=== PATIENT | female | born 1955 | race Hispanic/Latino ===

== ENCOUNTER → 2017-09-28 | Day surgery (SDC) | payer BC ==
[~2017-09-28] MED LIST: AMLODIPINE BESYL5 MG PO; ASPIR 8181 MG PO; AURYXIA PO; CARVEDILOL PO; CLOPIDOGREL75 MG PO; LIDOCAINE HCL 2% LOCAL INJ 5 ML SDV VIAL INJ ONE; PROPOFOL IV EMULSION 10 MG/ML 50 ML VIAL ONE; SODIUM CHLORIDE 0.9% 500ML 500 ML ONE
--- OUTSIDE RECORDS SUMMARY | 2017-09-28 07:25 | XMS REPORT | Clinical Summary ---
Demographics Address [address] [place] [address] Home Phone Preferred Language Unknown Marital Status Unknown Mormon Affiliation Patient Refu Race White Ethnic Group /Latin Author Author [facility] Address Unknown Phone Unavailable Care Team Providers Care County Commissioner Name Role Phone PCP Unavailable Allergies Active Allergy Reactions Severity Noted Date Comments Diphenhydramine Hcl 06/11/2017 Insulins 06/11/2017 Current Medications Prescription Sig. Disp. Refills Start End Date Status Date ferric citrate (AURYXIA) Take 630 mg by mouth 3 Active 210 mg iron Tab (three) times daily. amLODIPine (NORVASC) 5 MG Take 5 mg by mouth daily. Active tablet clopidogrel (PLAVIX) 75 Take 75 mg by mouth Active mg tablet daily. carvedilol (COREG) 12.5 Take 12.5 mg by mouth 2 Active MG tablet (two) times daily with breakfast and dinner. aspirin 81 MG EC tablet Take 81 mg by mouth Active daily. Active Problems Problem Noted Date ESRD (end stage renal disease) ([facility]) 09/21/2017 Pre-transplant evaluation for chronic kidney disease 09/21/2017 Essential hypertension 09/21/2017 Coronary artery disease involving poarch coronary artery of poarch heart without angina pectoris S/P coronary artery stent placement 09/21/2017 Secondary hyperparathyroidism of renal origin ([facility]) 09/21/2017 Encounters Date Type Specialty Care Team Description 09/22/2017 Telephone Transplant Jil Rasmussen Appointment ( Conference call with Madeleine Arguello and patient is aware of her appt date with Dr. Friedman on 10/19/17 at 10:00 am her itinerary has been mailed to the patient and faxed to the hd unit. Spoke with Jessica at the hd unit and she states she will give the patient her itinerary) 09/21/2017 Follow-Up Transplant Leo Loza MD 09/21/2017 Evaluation Transplant Leo Loza Pre-transplant evaluation MD Daniel for chronic kidney disease (Primary Dx);ESRD (end stage renal disease) ([facility]);Essential hypertension;Coronary artery disease involving poarch coronary artery of poarch heart without angina pectoris;S/P coronary artery stent placement;Secondary hyperparathyroidism of renal origin ([facility]) 09/21/2017 Ancillary Lab Leo Loza Orders MD Daniel 09/21/2017 Orders Only Transplant Hepatology Pre-transplant evaluation for chronic kidney disease;Anemia of renal disease 09/21/2017 Orders Only Transplant Mari Condon RN Pre-transplant evaluation for chronic kidney disease (Primary Dx);Anemia of renal disease 09/07/2017 [facility] Leo oLza ESRD (end stage renal Encounter MD Daniel disease) ([facility]);Pre-transplant evaluation for chronic kidney disease;Essential hypertension, malignant;Anemia of renal disease;Pre-operative cardiovascular examination;Abnormal blood chemistry 09/07/2017 [facility] Leo Loza ESRD (end stage renal Encounter MD Daniel disease) ([facility]);Pre-transplant evaluation for chronic kidney disease;Essential hypertension, malignant;Anemia of renal disease;Pre-operative cardiovascular examination;Abnormal blood chemistry 09/07/2017 [facility] Leo Loza ESRD (end stage renal Encounter MD Daniel disease) ([facility]);Pre-transplant evaluation for chronic kidney disease;Essential hypertension, malignant;Anemia of renal disease;Pre-operative cardiovascular examination;Abnormal blood chemistry 09/07/2017 [facility] Leo Loza ESRD (end stage renal Encounter MD Daniel disease) ([facility]);Pre-transplant evaluation for chronic kidney disease;Essential hypertension, malignant;Anemia of renal disease;Pre-operative cardiovascular examination;Abnormal blood chemistry 09/07/2017 [facility] Leo Loza ESRD (end stage renal Encounter MD Daniel disease) ([facility]);Pre-transplant evaluation for chronic kidney disease;Essential hypertension, malignant;Anemia of renal disease;Pre-operative cardiovascular examination;Abnormal blood chemistry 09/07/2017 [facility] Leo Loza ESRD (end stage renal Encounter MD Daniel disease) ([facility]);Pre-transplant evaluation for chronic kidney disease;Essential hypertension, malignant;Anemia of renal disease;Pre-operative cardiovascular examination;Abnormal blood chemistry 09/07/2017 Orders Only Lab DagoLeo ESRD (end stage renal MD Daniel disease) ([facility]);Pre-transplant evaluation for chronic kidney disease;Essential hypertension, malignant;Anemia of renal disease;Pre-operative cardiovascular examination;Abnormal blood chemistry 08/10/2017 Evaluation Transplant Leo Loza MD 08/10/2017 Evaluation Transplant Leo Loza MD 08/10/2017 Orders Only Transplant Hepatology Leo Loza ESRD (end stage renal MD Daniel disease) (HCC);Pre-transplant evaluation for chronic kidney disease;Essential hypertension, malignant;Anemia of renal disease;Pre-operative cardiovascular examination;Abnormal blood chemistry 08/10/2017 Office Visit Transplant Dago Leo ESRD (end stage renal MD Daniel disease) (HCC) (Primary Tianna Henderson, RN Dx);Pre-transplant evaluation for chronic kidney disease;Essential hypertension, malignant;Anemia of renal disease;Pre-operative cardiovascular examination;Abnormal blood chemistry 08/10/2017 Social Work Transplant Chidi Meza LCSW 08/10/2017 Abstract Transplant Juan R Gandhi 08/09/2017 Documentation Transplant Hilda Sapp 08/09/2017 Abstract Hepatology Arabella Goff 06/16/2017 Abstract Transplant Juan R Gandhi 06/11/2017 Abstract Transplant Juan R Gandhi 09/27/2016 Family History Medical History Relation Name Comments Heart attack Father Cancer Mother Relation Name Status Comments Father Mother Social History Tobacco Use Types Packs/Day Years Used Date Never Smoker Smokeless Tobacco: Never Used Alcohol Use Drinks/Week oz/Week Comments No Sex Assigned at Date Recorded Not on file Last Filed Vital Signs Vital Sign Reading Time Taken Blood Pressure 184/77 09/21/2017 11:21 AM IND[employer]RI[employer]ER[employer]IC Pulse 72 09/21/2017 11:21 AM INDUSTRIAL RE[employer]IGERATION MECH[employer]IC Temperature 36.8 C (98.2 F) 09/21/2017 11:21 AM INDUSTRIAL RE[employer]IGERATION MECH[employer]IC Respiratory Rate 16 09/21/2017 11:21 AM INDUSTRIAL RE[employer]IGERATION MECH[employer]IC Oxygen Saturation - - Inhaled Oxygen - - Concentration Weight 52.5 kg (115 lb 11.2 oz) 09/21/2017 11:21 AM INDUSTRIAL RE[employer]IGERATION MECH[employer]IC Height 149.9 cm (4' 11") 09/21/2017 11:21 AM INDUST[employer] RE[employer]IGERATION MECH[employer]IC Body Mass Index 23.37 09/21/2017 11:21 AM INDUSTRIAL RE[employer]IGERATION MECH[employer]IC Plan of Treatment Health Maintenance Due Date Last Done Comments INFLUENZA VACCINE 04/25/2017 Results * Occult blood, stool (09/21/2017 2:57 PM) Component Value Ref Range Occult blood Negative Negative Specimen Performing [place] [id number] * TRANSFUSION SERVICE REPORT - SCAN (09/08/2017 5:43 PM) Only the most recent of 2 results within the time period is included. * ECHOCARDIOGRAM REPORT - SCAN (09/07/2017 6:00 PM) Only the most recent of 2 results within the time period is included. 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 Clinical History HGB 10.8 HCT 34.1 % ESRD, HTN Contrast Medium: Definity. Amount - 2 ml Height: 59 inches Weight: 53.07 kg (117 lbs) BSA: 1.47 m^2 BMI: 23.63 kg/m^2 HR: 65 bpm BP: 143/94 mmHg Rest ECG Normal sinus rhythm. Inferolateral T wave inversion. Stress Stress Type: Pharmacologic Peak HR: 134 bpm HR BP Product : 18982 Peak BP: 191/93 mmHg Predicted HR: 158 bpm % of predicted HR: 85 Test Duration: 16:35 min Results Global LVEF (rest): Mildly depressed (LVEF 40-50%) Global LVEF (stress): Normal (LVEF >50%) ECG 1mm horizontal ST depressions in V3-6. <1mm ST depressions in inferior leads. Stress Protocol: Pharmacologic - Dobutamine +--------+-----+------+ +------+-----+--------+--+--------+----+------+ !Stage # !Time !Dosage!Other !Dosage!Heart!Blood !CP!Pain! Pain!Pain! !! !!Medication!!Rate !Pressure! !Location!Type!Action! +--------+-----+------+ +------+-----+--------+--+--------+----+------+ !1.0 !05:01!0.00!!!65 !143/64 !!!!! +--------+-----+------+ +------+-----+--------+--+--------+----+------+ !2.0 !02:19!10.00 !!!66 !155/83! !!!! +--------+-----+------+ +------+-----+--------+--+--------+----+------+ !3.0 !02:16!20.00 !!!72 !169/86! !!!! +--------+-----+------+ +------+-----+--------+--+--------+----+------+ !4.0 !02:10!30.00 !!!82 !191/93! !!!! +--------+-----+------+ +------+-----+--------+--+--------+----+------+ !5.0 !08:36!40.00 !Atropine!0.50!134!181/60!! !!! +--------+-----+------+ +------+-----+--------+--+--------+----+------+ !Recovery!16:35!0.00!!!92 !121/59! !!!! +--------+-----+------+ +------+-----+--------+--+--------+----+------+ Summary - Abnormal rest ECG. Abnormal ECG response to dobutamine stress. - Resting LVEF is 43%. The basal inferoseptum is akinetic. The remaining segments are mildly hypokinetic. - EF with stress is normal (55-60%). The basal inferoseptum remains hypokinetic. The remaining LV segments contract normally. 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 This is an abnormal study associated with low annual risk, but suggests presence of established obstructive CAD (small prior basal inferior [place]) Signature Left Ventricle LVEDV Messer's:128.66 ml LVESV Messer's:57.09 ml LVEF Messer's: 55.6 % LVEDVI: 88 ml/m^2 LVESVI: 39 ml/m^2 Contractility Score RestStress LV regional wall motion:(0-Non visualized 1-Normal 2-Hypokinesis 3-Akinesis 4-Dyskinesis 5-Aneurysm) Procedure Note Interface, External Ris In - 09/07/2017 5:11 PM IND[employer]ER[employer]IC Stress Echocardiography Report Demographics Patient Name CHANG TAYLOR Date of Study 09/07/2017 [place] Gender Female Visit Number [id number] Race Room Number OP Number Date of 1955 Referring Dago Bailey Physician Daniel Age 62 year(s) 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 Clinical History HGB 10.8 HCT 34.1 % ESRD, HTN Contrast Medium: Definity. Amount - 2 ml Height: 59 inches Weight: 53.07 kg (117 lbs) BSA: 1.47 m^2 BMI: 23.63 kg/m^2 HR: 65 bpm BP: 143/94 mmHg Rest ECG Normal sinus rhythm. Inferolateral T wave inversion. Stress Stress Type: Pharmacologic Peak HR: 134 bpm HR BP Product: 07919 Peak BP: 191/93 mmHg Predicted HR: 158 bpm % of predicted HR: 85 Test Duration: 16:35 min Results Global LVEF (rest): Mildly depressed (LVEF 40-50%) Global LVEF (stress): Normal (LVEF >50%) ECG 1mm horizontal ST depressions in V3-6. <1mm ST depressions in inferior leads. Stress Protocol: Pharmacologic - Dobutamine +--------+-----+------+ +------+-----+--------+--+--------+----+------ + !Stage # !Time !Dosage!Other !Dosage!Heart!Blood !CP!Pain !Pain!Pain ! ! ! ! !Medication! !Rate !Pressure! !Location!Type!Action! +--------+-----+------+ +------+-----+--------+--+--------+----+------ + !1.0 !05:01!0.00 ! ! !65 !143/64 ! ! ! ! ! +--------+-----+------+ +------+-----+--------+--+--------+----+------ + !2.0 !02:19!10.00 ! ! !66 !155/83 ! ! ! ! ! +--------+-----+------+ +------+-----+--------+--+--------+----+------ + !3.0 !02:16!20.00 ! ! !72 !169/86 ! ! ! ! ! +--------+-----+------+ +------+-----+--------+--+--------+----+------ + !4.0 !02:10!30.00 ! ! !82 !191/93 ! ! ! ! ! +--------+-----+------+ +------+-----+--------+--+--------+----+------ + !5.0 !08:36!40.00 !Atropine !0.50 !134 !181/60 ! ! ! ! ! +--------+-----+------+ +------+-----+--------+--+--------+----+------ + !Recovery!16:35!0.00 ! ! !92 !121/59 ! ! ! ! ! +--------+-----+------+ +------+-----+--------+--+--------+----+------ + Summary - Abnormal rest ECG. Abnormal ECG response to dobutamine stress. - Resting LVEF is 43%. The basal inferoseptum is akinetic. The remaining segments are mildly hypokinetic. - EF with stress is normal (55-60%). The basal inferoseptum remains hypokinetic. The remaining LV segments contract normally. 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 This is an abnormal study associated with low annual risk, but suggests presence of established obstructive CAD (small prior basal inferior [place]) Signature Left Ventricle LVEDV Messer's:128.66 ml LVESV Messer's:57.09 ml LVEF Messer's: 55.6 % LVEDVI: 88 ml/m^2 LVESVI: 39 ml/m^2 Contractility Score Rest Stress LV regional wall motion:(0-Non visualized 1-Normal 2-Hypokinesis 3-Akinesis 4-Dyskinesis 5-Aneurysm) * 2D Echo W/Doppler(CW/PW/Color) (09/07/2017 12:37 PM) Component Value Ref Range Ejection Fraction Specimen Performing Laboratory [facility] ECHO HEARTLAB MKCKESSON [facility] Narrative Transthoracic Echocardiography Report (TTE) Demographics Patient NameCHANG TAYLOR DEDate of Study09/07/2017 [place] Gender Female Visit [id number] Race NumberOP Number Date of 1955 ReferringMudavy Bailey Physician Daniel Age 62 year(s) 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 Needs to be Pre Physician Read MD Sally Ross FEL Procedure Type of Study TTE procedure:2DECHO W DOPPLER(CW/PW/COLOR) (Routine) Indications:Pre-surgical evaluation of organ transplant. Clinical History HGB 10.8 HCT 34.1 % ESRD, HTN Height: 59 inches Weight: 53.07 kg (117 lbs) BSA: 1.47 m^2 BMI: 23.63 kg/m^2 HR: 66 bpm BP: 143/94 mmHg Summary The left ventricle is chamber size (by vol index) is mildly enlarged. Suggestive of eccentric LV hypertrophy. LVEF by Messer's method of disk assessment is mildly reduced (45-49%) . The basal inferoseptum is akinetic. The remaining ansari are mildly hypokinetic. Grade 2 diastolic dysfunction (moderately increased LA pressure). A small pericardial effusion is present . Signature Findings Technical Quality: Technically adequate exam. Left Ventricle The left ventricle is chamber size (by vol index ) is mildly enlarged. Suggestive of eccentric LV hypertrophy. LVEF by Messer's method of disk assessment is mildly reduced (45-49%) . The basal inferoseptum is akinetic. The remaining ansari are mildly hypokinetic. Grade 2 diastolic dysfunction ( moderately increased LA pressure). Left AtriumLA size is moderately (42-48 ml/m2) . Right VentricleRV chamber size is normal . Global RV systolic function is low normal . Right Atrium RA cavity size is mildly enlarged . Aortic Valve Normal AoV structure and function. Mitral Valve Mild MV leaflet thickening. Mild mitral regurgitation. Tricuspid ValveTV structure is normal. Mild tricuspid regurgitation. Estimated peak systolic PA pressure is 55-60 mmHg . Pulmonic Valve PV is not well visualized; function appears normal by Doppler visualized. AortaAortic root size (SInus of Valsalva diameter) is normal . PericardiumA small pericardial effusion is present . IVC/SVC/PA/PV/PleuralThe estimated RA pressure by IVC dynamics 5-10mmHg . Chambers/Structures Left Atrium LA Volume: 68.14 ml LA Area: 23.54 cm^2 LA Vol. Index: 46 ml/m^2 Left Ventricle LVIDd: 4.82 cm LVIDs: 3.91 cm LV Septum Diastolic: 0.97 cm LV PW Diastolic: 1.44 cmLV FS: 18.9 % LVEDV Messer's:119.99 ml LVESV Messer's:56.27 mlLVEDVI: 82 ml/m ^2 LVEF Messer's: 53.1 %LVESVI: 38 ml /m^2 LVOT Diameter: 1.9 cm Right Ventricle TAPSE: 1.53 cm Aorta Ao Root S of Jeanine.: 2.53 cm Vena Cava IVC Expirium: 1.46 cm Doppler/Quantitative Measurements Mitral Valve MV Peak E-Wave: 0.98 m/sMV Peak A-Wave: 0.86 m/s E/A Ratio: 1.13 Peak Gradient: 3.85 mmHg MV Chaitanya. Peak: Tissue Doppler E' Lateral Velocity: 0.04 m/s E/E': 22.06 Aortic Valve Peak Velocity: 1.26 m/sMean Velocity: 0.91 m/s Peak Gradient: 6.36 mmHg Mean Gradient: 3.59 mmHg AV Area (continuity): 1.77 cm^2 AV VTI: 32.32 cm AV DVI: 0.63 LVOT Peak Velocity: 0.88 m/s Peak Gradient: 3.08 mmHg Mean Velocity: 0.59 m/s Mean Gradient: 1.55 mmHg LVOT Diameter: 1.9 cm LVOT VTI: 20.23 cm LVOT Area: 2.84 cm^2LVOT SV:57.33 ml LVOT CO: 3.78 l/min LVOT CI: 2.57 l/min/m^2 Tricuspid Valve TR Velocity: 3.55 m/s TR Gradient: 50.29 mmHg Procedure Note Interface, External Ris In - 09/07/2017 5:09 PM [employer] ME[employer]IC Transthoracic Echocardiography Report (TTE) Demographics Patient Name CHANG TAYLOR Date of Study 09/07/2017 [place] Gender Female Visit Number [id number] Race Room Number OP Number Date of 1955 Referring Dago Bailey Physician Daniel Age 62 year(s) 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 Clinical History HGB 10.8 HCT 34.1 % ESRD, HTN Height: 59 inches Weight: 53.07 kg (117 lbs) BSA: 1.47 m^2 BMI: 23.63 kg/m^2 HR: 66 bpm BP: 143/94 mmHg Summary The left ventricle is chamber size (by vol index) is mildly enlarged. Suggestive of eccentric LV hypertrophy. LVEF by Messer's method of disk assessment is mildly reduced (45-49%) . The basal inferoseptum is akinetic. The remaining ansari are mildly hypokinetic. Grade 2 diastolic dysfunction (moderately increased LA pressure). A small pericardial effusion is present . Signature Findings Technical Quality: Technically adequate exam. Left Ventricle The left ventricle is chamber size (by vol index) is mildly enlarged. Suggestive of eccentric LV hypertrophy. LVEF by Messer's method of disk assessment is mildly reduced (45-49%) . The basal inferoseptum is akinetic. The remaining ansari are mildly hypokinetic. Grade 2 diastolic dysfunction (moderately increased LA pressure). Left Atrium LA size is moderately (42-48 ml/m2) . Right Ventricle RV chamber size is normal . Global RV systolic function is low normal . Right Atrium RA cavity size is mildly enlarged . Aortic Valve Normal AoV structure and function. Mitral Valve Mild MV leaflet thickening. Mild mitral regurgitation. Tricuspid Valve TV structure is normal. Mild tricuspid regurgitation. Estimated peak systolic PA pressure is 55-60 mmHg . Pulmonic Valve PV is not well visualized; function appears normal by Doppler visualized. Aorta Aortic root size (SInus of Valsalva diameter) is normal . Pericardium A small pericardial effusion is present . IVC/SVC/PA/PV/Pleural The estimated RA pressure by IVC dynamics 5-10mmHg . Chambers/Structures Left Atrium LA Volume: 68.14 ml LA Area: 23.54 cm^2 LA Vol. Index: 46 ml/m^2 Left Ventricle LVIDd: 4.82 cm LVIDs: 3.91 cm LV Septum Diastolic: 0.97 cm LV PW Diastolic: 1.44 cm LV FS: 18.9 % LVEDV Messer's:119.99 ml LVESV Messer's:56.27 ml LVEDVI: 82 ml/m^2 LVEF Messer's: 53.1 % LVESVI: 38 ml/m^2 LVOT Diameter: 1.9 cm Right Ventricle TAPSE: 1.53 cm Aorta Ao Root S of Jeanine.: 2.53 cm Vena Cava IVC Expirium: 1.46 cm Doppler/Quantitative Measurements Mitral Valve MV Peak E-Wave: 0.98 m/s MV Peak A-Wave: 0.86 m/s E/A Ratio: 1.13 Peak Gradient: 3.85 mmHg MV Chaitanya. Peak: Tissue Doppler E' Lateral Velocity: 0.04 m/s E/E': 22.06 Aortic Valve Peak Velocity: 1.26 m/s Mean Velocity: 0.91 m/s Peak Gradient: 6.36 mmHg Mean Gradient: 3.59 mmHg AV Area (continuity): 1.77 cm^2 AV VTI: 32.32 cm AV DVI: 0.63 LVOT Peak Velocity: 0.88 m/s Peak Gradient: 3.08 mmHg Mean Velocity: 0.59 m/s Mean Gradient: 1.55 mmHg LVOT Diameter: 1.9 cm LVOT VTI: 20.23 cm LVOT Area: 2.84 cm^2 LVOT SV:57.33 ml LVOT CO: 3.78 l/min LVOT CI: 2.57 l/min/m^2 Tricuspid Valve TR Velocity: 3.55 m/s TR Gradient: 50.29 mmHg * US abdomen complete (09/07/2017 10:53 AM) Specimen Performing Laboratory [facility] FINAL REPORT Abdominal Ultrasound Clinical Diagnosis: Renal transplant evaluation Comparison: No comparison Technique: Multiple transaxial and longitudinal images were obtained through the abdomen with real time ultrasonography.Five MHz transducer was utilized.91 images were submitted for interpretation. Report: Liver: The liver measures 13.5 cm in the right midaxillary line. There are no focal masses.The echogenicity is within normal limits. Spleen: The spleen measures 8.2 cm. in the left mid axillary line. Gallbladder: The transverse diameter is 2.1 cm.The wall measures four mm.There are no shadowing stones visualized. Biliary tree: There is no evidence of intra or extra hepatic biliary ductal dilatation.The common bile duct measures three mm. Portal vein: The portal vein measures nine mm. Pancreas:The pancreatic tail is not well seen secondary to overlying bowel gas. Ascites: Negative Pleural Effusion: Negative Right kidney: The right kidney measures 8.8 cm. in length without evidence of hydronephrosis. Left kidney: Theleft kidney measures 8.9 cm. in length without evidence of hydronephrosis. IVC/Aorta: Partially seen segments demonstrate no abnormality. The proximal transverse dimension of aorta measured 1.9 cm. Impression: Small kidneys bilaterally consistent with the patient's clinical history. No other abnormality. 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 Five MHz transducer was utilized. 91 images were submitted for interpretation. Report: Liver: The liver measures 13.5 cm in the right midaxillary line. There are no focal masses. The echogenicity is within normal limits. Spleen: The spleen measures 8.2 cm. in the left mid axillary line. Gallbladder: The transverse diameter is 2.1 cm. The wall measures four mm. There are no shadowing stones visualized. Biliary tree: There is no evidence of intra or extra hepatic biliary ductal dilatation. The common bile duct measures three mm. Portal vein: The portal vein measures nine mm. Pancreas: The pancreatic tail is not well seen secondary to overlying bowel gas. Ascites: Negative Pleural Effusion: Negative Right kidney: The right kidney measures 8.8 cm. in length without evidence of hydronephrosis. Left kidney: The left kidney measures 8.9 cm. in length without evidence of hydronephrosis. IVC/Aorta: Partially seen segments demonstrate no abnormality. The proximal transverse dimension of aorta measured 1.9 cm. Impression: Small kidneys bilaterally consistent with the patient's clinical history. No other abnormality. Signed: Shaina Ritchie MD Report Verified Date/Time: 09/07/2017 14:09:46 Reading Location: [address] Ultrasound Reading Room * CTA abdomen & pelvis (09/07/2017 10:00 AM) Specimen Performing Laboratory [facility] Narrative FINAL REPORT CT angiogram of the abdomen and pelvis Reason for study: ESRD, evaluate for renal transplant Comparison: None Technique: Pre and post contrast CT of the abdomen and pelvis. Post contrast imaging was performed in the arterial phase. Venous phase imaging of the pelvis was also performed. IV contrast was given. 3-D post processing was performed at the workstation. Dose modulation, iterative reconstruction, and/or weight based adjustment of the mA/kV was utilized to reduce the radiation dose to as low as reasonably achievable. Findings: The abdominal aorta is patent and measures 1.6, 1.3, and 1.1 cm in diameter in the proximal, mid, and distal portion, respectively. Minimal calcified atherosclerotic plaque is seen. The celiac, inferior mesenteric, and superior mesenteric arteries are patent with mild stenosis at the origin of the celiac artery. Single patent bilateral renal arteries are identified. The iliac arteries are patent and contains minimal atherosclerotic calcification. The distal external iliac arteries measure about 5 mm in diameter bilaterally. The hypogastric artery and branches are more heavily calcified. The visualized femoral arteries are patent with calcifications. The iliofemoral veins are patent on delayed imaging. A small low-density pericardial effusion is present. The bones are osteopenic. There is no lymphadenopathy. The kidneys are small. The spleen, adrenals, pancreas, gallbladder, and liver have an unremarkable arterial phase appearance. There is no bile duct dilatation or hydronephrosis. The urinary bladder is empty. The uterus and ovaries are small and contain arcuate artery calcifications. Trace free fluid is identified in the pelvis. The bowel is not obstructed. IMPRESSION 1. Patent iliac and femoral arteries and veins. Minimal calcified and noncalcified atherosclerotic plaque is seen, compatible with ESRD. 2. Patent abdominal aorta and visceral vessels with minimal scattered atherosclerotic plaque. No aneurysm or dissection. 3. ESRD. 4. Small pericardial effusion. Signed: Kevin Fraser MD Report Verified Date/Time:09/07/2017 10:34:13 Reading Location: [place] [address] Cardiology MRI Procedure Note Interface, External Ris In - 09/07/2017 6:37 PM [employer] FINAL REPORT CT angiogram of the abdomen and pelvis Reason for study: ESRD, evaluate for renal transplant Comparison: None Technique: Pre and post contrast CT of the abdomen and pelvis. Post contrast imaging was performed in the arterial phase. Venous phase imaging of the pelvis was also performed. IV contrast was given. 3-D post processing was performed at the workstation. Dose modulation, iterative reconstruction, and/or weight based adjustment of the mA/kV was utilized to reduce the radiation dose to as low as reasonably achievable. Findings: The abdominal aorta is patent and measures 1.6, 1.3, and 1.1 cm in diameter in the proximal, mid, and distal portion, respectively. Minimal calcified atherosclerotic plaque is seen. The celiac, inferior mesenteric, and superior mesenteric arteries are patent with mild stenosis at the origin of the celiac artery. Single patent bilateral renal arteries are identified. The iliac arteries are patent and contains minimal atherosclerotic calcification. The distal external iliac arteries measure about 5 mm in diameter bilaterally. The hypogastric artery and branches are more heavily calcified. The visualized femoral arteries are patent with calcifications. The iliofemoral veins are patent on delayed imaging. A small low-density pericardial effusion is present. The bones are osteopenic. There is no lymphadenopathy. The kidneys are small. The spleen, adrenals, pancreas, gallbladder, and liver have an unremarkable arterial phase appearance. There is no bile duct dilatation or hydronephrosis. The urinary bladder is empty. The uterus and ovaries are small and contain arcuate artery calcifications. Trace free fluid is identified in the pelvis. The bowel is not obstructed. IMPRESSION 1. Patent iliac and femoral arteries and veins. Minimal calcified and noncalcified atherosclerotic plaque is seen, compatible with ESRD. 2. Patent abdominal aorta and visceral vessels with minimal scattered atherosclerotic plaque. No aneurysm or dissection. 3. ESRD. 4. Small pericardial effusion. Signed: Kevin Fraser MD Report Verified Date/Time: 09/07/2017 10:34:13 Reading Location: [place] [address] Cardiology MRI * ECG 12 lead (09/07/2017 9:08 AM) Specimen Performing Laboratory GE MUSE Narrative Ventricular Rate 63 BPM Atrial Rate 63 BPM P-R Interval 152 ms QRS Duration 86 ms Q-T Interval 436 ms QTC Calculation(Bazett) 446 ms P [place] -20 degrees R [place] 3 degrees T [place] 206 degrees Normal sinus rhythm ST & T wave abnormality, consider inferolateral ischemia Abnormal ECG No previous ECGs available Confirmed by MD Barth Roberto ([id number]) on 09/07/2017 1:30:09 PM Procedure Note Interface, External Ris In - 09/07/2017 1:30 PM [employer] Ventricular Rate 63 BPM Atrial Rate 63 BPM P-R Interval 152 ms QRS Duration 86 ms Q-T Interval 436 ms QTC Calculation(Bazett) 446 ms P [place] -20 degrees R [place] 3 degrees T [place] 206 degrees Normal sinus rhythm ST & T wave abnormality, consider inferolateral ischemia Abnormal ECG No previous ECGs available Confirmed by MD Barth Roberto ([id number]) on 09/07/2017 1:30:09 PM * Urinalysis, Routine (09/07/2017 8:14 AM) Component Value Ref Range Color, UA Light Yellow Clarity, UA Clear Specific [place], UA 1.003 1.001 - 1.035 pH, UA 8.5 (H) 5.0 - 8.0 Protein, UA 300 mg/dL (A) Negative Glucose, UA 70 mg/dL (A) Negative Ketones, UA Negative Negative Bilirubin, UA Negative Negative Blood, UA Negative Negative Nitrite, UA Negative Negative Leukocytes, UA Negative Negative Urobilinogen, UA 0.2 0.2 - 1.0 mg/dL RBC, UA 1 /HPF WBC, UA 1 /HPF Bacteria, UA Rare Squam Epithel, UA 3 /HPF Specimen Source Specimen Performing Laboratory Urine [facility] [address] [address] * HLA Typing CII (09/07/2017 8:13 AM) Component Value Ref Range HLA-DR AG1 8 HLA-DR AG2 14 HLA-DR AG3-1 HLA-DR AG3-2 52 HLA-DR AG4-1 HLA-DR AG4-2 HLA-DR AG5-1 HLA-DR AG5-2 HLA-DQ AG1 04 HLA-DQ AG2 05 HLA-DQB AG 1-1 4 HLA-DQB AG 1-2 7 HLA-DPA AG 1-1 01 HLA-DPA AG 1-2 01 HLA-DPB AG 1-1 04:01 HLA-DPB AG 1-2 04:02 HLA-AG Notes HLA-AG Report Comments Specimen Performing Laboratory Blood [facility] HLA TEST[facility] ONE Okfuskeemaynor Charles, MS: [id number] [place] [address] * HLA Typing CI (09/07/2017 8:13 AM) Component Value Ref Range HLA-A AG1 2 HLA-A AG2 24 HLA-B AG1 35 HLA-B AG2 35 HLA-C AG1 4 HLA-C AG2 4 HLA-A BW1 6 HLA-A BW2 6 HLA-AG Notes HLA-AG Report Comments Specimen Performing Laboratory Blood [facility] HLA TEST[facility] ONE Okfuskeemaynor Charles, MS: [id number] [place] [address] * Flow PRA Class II (09/07/2017 8:13 AM) Component Value Ref Range Flow Class II Percent 11 Positive Flow Class Report Comments Specimen Performing Laboratory Blood [facility] ONE Liam Charles, MS: [place] [address] * Flow PRA Class I (09/07/2017 8:13 AM) Component Value Ref Range Flow Class I Percent 10 Positive Flow Class Report Comments Specimen Performing Laboratory Blood [facility] ONE Liam Charles, MS: [place] [place] [address] * AB Specificity Class II (09/07/2017 8:13 AM) Component Value Ref Range AB Specificity Class II NO CLASS II ANTIBODY DETECTED WITH MFIs > 4000 AB Specificity Titr Class Report Specimen Performing Laboratory Blood [facility] HLA TESTING ONE Liammaynor Charles, MS: [place] [place] [address] * AB Specificity Class I (09/07/2017 8:13 AM) Component Value Ref Range AB Specificity Class I NO CLASS I ANTIBODY DETECTED WITH MFIs > 4000 AB Specificity Titr Class Report Specimen Performing Laboratory Blood [facility] HLA [facility] ONE Liam Charles, MS: [id number] [place] [address] * T Spot TB (09/07/2017 8:13 AM) Component Value Ref Range T-Spot TB Negative Neg Ctrl Spot Count 0 Panel A Spot 2 Panel B Spot [address] >20 Scan Result Specimen Performing Laboratory Blood [facility] [address] [facility], [address] [place] [address] * PT/aPTT (09/07/2017 8:13 AM) Component Value Ref Range Protime 14.8 (H) 11.7 - 14.7 seconds INR 1.2 <=5.9 PTT 32.9 22.5 - 36.0 seconds Specimen Performing Laboratory Blood [address] [address] Narrative RECOMMENDED COUMADIN/WARFARIN INR THERAPY RANGES STANDARD DOSE: 2.0 - 3.0 Includes: PROPHYLAXIS for venous thrombosis, systemic embolization; TREATMENT for venous thrombosis and/or pulmonary embolus. HIGH RISK: Target INR is 2.5-3.5 for patients with mechanical heart valves. * HIV-1 Antigen with HIV-1/2 Antibody (09/07/2017 8:13 AM) Component Value Ref Range HIV-1 Antigen with HIV Nonreactive Nonreactive 1&2 Antibody Specimen Performing Laboratory Blood [address] [address] * CBC with platelet count + automated diff (09/07/2017 8:13 AM) Component Value Ref Range WBC 6.4 3.5 - 10.5 K/ L RBC 3.54 (L) 3.93 - 5.22 M/ L Hemoglobin 10.8 (L) 11.2 - 15.7 GM/DL Hematocrit 34.1 34.1 - 44.9 % MCV 96.3 (H) 79.4 - 94.8 fL MCH 30.5 25.6 - 32.2 pg MCHC 31.7 (L) 32.2 - 35.5 GM/DL RDW 13.5 11.7 - 14.4 % Platelets 268 150 - 450 K/CU MM MPV 10.1 9.4 - 12.3 fL nRBC 0 0 - 0 /100 WBC % Neutros 68 % % Lymphs 15 % % Monos 11 % % Eos 4 % % Baso 1 % # Neutros 4.32 1.56 - 6.13 K/ L # Lymphs 0.97 (L) 1.18 - 3.74 K/ L # Monos 0.71 (H) 0.24 - 0.36 K/ L # Eos 0.28 0.04 - 0.36 K/ L # Baso 0.05 0.01 - 0.08 K/ L Immature 0 0 - 1 % Granulocytes-Relative Specimen Performing Laboratory [address] [address] * Hepatitis C Antibody (09/07/2017 8:13 AM) Component Value Ref Range Hepatitis C Ab Nonreactive Nonreactive Specimen Performing Laboratory [address] [address] * Cytomegalovirus antibody, IgM (09/07/2017 8:13 AM) Component Value Ref Range CMV IgM Negative Specimen Performing Laboratory [address] [address] * Hepatitis B core antibody, IgM (09/07/2017 8:13 AM) Component Value Ref Range Hep B C IgM Nonreactive Nonreactive Specimen Performing Laboratory [address] [address] * EBV-VCA antibody, IgM (09/07/2017 8:13 AM) Component Value Ref Range EBV VCA IgM Negative Specimen Performing Laboratory [address] [address] * EBV-VCA antibody, IgG (09/07/2017 8:13 AM) Component Value Ref Range EBV VCA IgG Positive Specimen Performing Laboratory [address] [address] * Blood typing, automated (09/07/2017 8:13 AM) Component Value Ref Range ABO/RH AUTOMATED (BEAKER) O POSITIVE Specimen Performing Laboratory [address] [address] * RPR (09/07/2017 8:13 AM) Component Value Ref Range RPR Nonreactive Nonreactive Specimen Performing Laboratory [address] [address] * Hepatitis B surface antibody (09/07/2017 8:13 AM) Component Value Ref Range Hep B S Ab 426.9 (H) <8.0 mIU/mL Specimen Performing Laboratory [address] [address] * Hepatitis B surface antigen (09/07/2017 8:13 AM) Component Value Ref Range hepatitis B Surface Ag Nonreactive Nonreactive Specimen [place] [address] * Cytomegalovirus antibody, IgG (09/07/2017 8:13 AM) Component Value Ref Range CMV IgG Positive Specimen [place] [address] * CBC w/PLT Count & Auto Differential (09/07/2017 8:13 AM) Specimen Performing Laboratory Blood Narrative The following orders were created for panel order CBC w/PLT Count & Auto Differential. Procedure Abnormality Status --------- - ------ CBC with platelet count ...[[id number]]AbnormalFinal result Please view results for these tests on the individual orders. * Direct AHG (WANDY)/Direct Naseem (09/07/2017 8:13 AM) Component Value Ref Range Direct AHG-IGG NEGATIVE Direct AHG-C3B, C3D NEGATVIE Specimen [place] [address] * Urine Culture (09/07/2017 8:13 AM) Component Value Ref Range Result 60-69,000 col/mL skin adolfo Specimen Performing Laboratory Urine - Urine, [facility] Unspecified Source [address] [place] [address] * Varicella Zoster Antibody, IgG (09/07/2017 8:13 AM) Component Value Ref Range Varicella IgG 6.8 Al Specimen [place]forming [place] [address] Narrative VARICELLA ZOSTER RESULT INTERPRETATIONS: <=0.8 AlNonreactive:Presumed non-immune to VZV 0.9-1.0 AlEquivocal >=1.1 AlReactive:Presumed immune to VZV * Uric Acid (09/07/2017 8:13 AM) Component Value Ref Range Uric Acid 3.9 2.6 - 7.2 mg/dL Specimen [place]forming [place] [address] * Phosphorus (09/07/2017 8:13 AM) Component Value Ref Range Phosphorus 4.1 2.3 - 4.7 mg/dL Specimen Performing Laboratory Blood [address] [address] * PTH, Intact (09/07/2017 8:13 AM) Component Value Ref Range PTH 447.4 (H) 8.5 - 72.5 pg/mL Specimen Performing Laboratory Blood [address] [address] * Lactate Dehydrogenase (LDH) (09/07/2017 8:13 AM) Component Value Ref Range LDH 193 125 - 220 U/L Specimen Performing Laboratory Blood [address] [address] * Hemoglobin A1c (09/07/2017 8:13 AM) Component Value Ref Range Hemoglobin A1C 6.5 (H) 4.3 - 6.1 % Specimen Performing Laboratory Blood [address] [address] * Gamma Glutamyl Transferase (GGT) (09/07/2017 8:13 AM) Component Value Ref Range GGT 24 9 - 64 U/L Specimen Performing Laboratory Blood [address] [address] * Lipid panel (09/07/2017 8:13 AM) Component Value Ref Range Triglycerides 153 mg/dL Cholesterol 243 mg/dL HDL 56 mg/dL LDL Calculated 156 mg/dL Specimen Performing Laboratory [address] [address] Narrative Triglyceride Reference Range: Low Risk <150 [id number] High Risk 200-499 Very High Risk>=500 Cholesterol Reference Range: Low Risk <200 [id number] High Risk>240 HDL Cholesterol Reference Range: Low Risk >=60 High Risk <40 LDL Cholesterol Reference Range: Optimal<100 Near [id number] Very High >=190 * Comprehensive metabolic panel (09/07/2017 8:13 AM) Component Value Ref Range Protein, Total 8.2 6.0 - 8.3 gm/dL Albumin 4.2 3.5 - 5.0 g/dL Alkaline Phosphatase 134 40 - 150 U/L Total Bilirubin 0.5 0.2 - 1.2 mg/dL Sodium 135 (L) 136 - 145 meq/L Potassium 4.4 3.5 - 5.1 meq/L Chloride 92 (L) 98 - 107 meq/L CO2 30 (H) 22 - 29 meq/L BUN 30 (H) 7 - 21 mg/dL Creatinine 4.74 (H) 0.57 - 1.25 mg/dL Glucose 90 70 - 105 mg/dL Calcium 8.7 8.4 - 10.2 mg/dL AST 15 5 - 34 U/L ALT 12 6 - 55 U/L EGFR 9Comment: ESTIMATED GFR IS NOT ACCURATE mL/min/1.73 sq m CREATININE CLEARANCE IN PREDICTING GLOMERULAR FILTRATION RATE. ESTIMATED GFR IS NOT APPLICABLE FOR DIALYSIS PATIENTS. Specimen [place] [address] * Type and Screen, Automated (08/10/2017 11:16 AM) Component Value Ref Range ABO/RH AUTOMATED (TRAVIS) O POSITIVE Ab Scrn NEGATIVE Specimen [place] [address] after 09/27/2016
--- OUTSIDE RECORDS SUMMARY | 2017-09-28 07:25 | XMS REPORT ---
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 Allergies, Adverse Reactions, Alerts This patient has no known allergies or adverse reactions. Medications This patient has no known medications. Results Test Description Test Time Test Comments Text Results Atomic Results Result Comments OCCULT BLOOD, STOOL 2017-09-21 21:48:00 FECAL OCCULT BLOOD (BEAKER) (test psap=146) Negative Negative VARICELLA ZOSTER ANTIBODY, [id number] 14:12:00* Test Item Value Reference Range Comments VARICELLA ZOSTER IGG (AL) (BEAKER) (test avog=6778) 6.8 Al VARICELLA ZOSTER RESULT INTERPRETATIONS: <=0.8 Al Nonreactive: Presumed non-immune to VZV 0.9-1.0 Al Equivocal >=1.1 Al Reactive: Presumed immune to VZVCYTOMEGALOVIRUS ANTIBODY, [id number] 14:04 :00* Test Item Value Reference Range Comments CYTOMEGALOVIRUS IGG ANTIBODY (BEAKER) (test nhrs=820) Positive CYTOMEGALOVIRUS ANTIBODY, [id number] 14:04:00* Test Item Value Reference Range Comments CYTOMEGALOVIRUS IGM ANTIBODY (BEAKER) (test loem=491) Negative EBV-VCA ANTIBODY, [id number] 14:04:00* Test Item Value Reference Range Comments LATONIA-LOPEZ VCA IGG (BEAKER) (test dlup=923) Positive EBV-VCA ANTIBODY, [id number] 14:04:00* Test Item Value Reference Range Comments LATONIA-LOPEZ VCA IGM (BEAKER) (test rgod=462) Negative URINE [id number] 13:37:00* Test Item Value Reference Range Comments CULTURE (BEAKER) (test lcgb=0019) 60-69,000 col/mL skin adolfo [id number] 01:09:00* Test Item Value Reference Range Comments RPR SCREEN (BEAKER) (test lvic=185) Nonreactive Nonreactive U/S, ABDOMINAL, [id number] 14:09:00Reason for Exam:->esrd; eval for renal txpFINAL REPORT Abdominal Ultrasound Clinical Diagnosis: Renal transplant evaluation Comparison: No comparison Technique: Multiple transaxial and longitudinal images were obtained through the abdomen with real time ultrasonography. Five MHz transducer was utilized. 91 images were submitted for interpretation. Report:Liver: The liver measures 13.5 cm in the right midaxillary line. There are no focal masses. The echogenicity is within normal limits.Spleen: The spleen measures 8.2 cm. in the left mid axillary line. Gallbladder: The transverse diameter is 2.1 cm. The wall measures four mm. There are no shadowing stones visualized. Biliary tree : There is no evidence of intra or extra hepatic biliary ductal dilatation. The common bile duct measures three mm.Portal vein: The portal vein measures nine mm. Pancreas: The pancreatic tail is not well seen secondary to overlying bowel gas. Ascites: NegativePleural Effusion: NegativeRight kidney : The right kidney measures 8.8 cm. in length without evidence of hydronephrosis.Left kidney: The left kidney measures 8.9 cm. in length without evidence of hydronephrosis.IVC/Aorta: Partially seen segments demonstrate no abnormality. The proximal transverse dimension of aorta measured 1.9 cm. Impression:Small kidneys bilaterally consistent with the patient's clinical history. No other abnormality. Signed: Danny Ritchieort Verified Date/ Time: 09/07/2017 14:09:46 Reading Location: [address] Ultrasound Reading Room , CTA [id number] 10:34:00Reason for Exam:->esrd; eval for renal txpFINAL REPORT CT angiogram of the abdomen and [...] 4. Small pericardial effusion. Signed: Kevin Fraser MDReport Verified Date/Time: 09/07/2017 10:34:13 Reading Location: [place] [address] Cardiology MRI ALYSIS W/ [id number] 10:03:00 * Test Item Value Reference Range Comments COLOR (BEAKER) (test howh=646) Light Yellow CLARITY (BEAKER) (test ggpm=761) Clear SPECIFIC GRAVITY UA (BEAKER) (test cqfm=300) 1.003 1.001-1.035 PH UA (BEAKER) (test fcia=082) 8.5 5.0-8.0 PROTEIN UA (BEAKER) (test ecel=619) 300 mg/dL Negative GLUCOSE UA (BEAKER) (test waps=220) 70 mg/dL Negative KETONES UA (BEAKER) (test wurj=383) Negative Negative BILIRUBIN UA (BEAKER) (test saar=103) Negative Negative BLOOD UA (BEAKER) (test jlmi=065) Negative Negative NITRITE UA (BEAKER) (test sxsl=643) Negative Negative LEUKOCYTE ESTERASE UA (BEAKER) (test glos=691) Negative Negative UROBILINOGEN UA (BEAKER) (test adrg=328) 0.2 mg/dL 0.2-1.0 RBC UA (BEAKER) (test tojo=044) 1 /HPF WBC UA (BEAKER) (test pswc=083) 1 /HPF BACTERIA (BEAKER) (test adny=028) Rare SQUAMOUS EPITHELIAL (BEAKER) (test rosu=476) 3 /HPF SOURCE(BEAKER) (test hbml=3315) HEMOGLOBIN [id number] 09:51:00* Test Item Value Reference Range Comments HEMOGLOBIN A1C (BEAKER) (test ojno=799) 6.5 % 4.3-6.1 COMPREHENSIVE METABOLIC [id number] 09:32:00* Test Item Value Reference Range Comments TOTAL PROTEIN (BEAKER) (test obua=990) 8.2 gm/dL 6.0-8.3 ALBUMIN (BEAKER) (test ztsm=1240) 4.2 g/dL 3.5-5.0 ALKALINE PHOSPHATASE (BEAKER) (test rpra=750) 134 U/L 40-150 BILIRUBIN TOTAL (BEAKER) (test gkhl=898) 0.5 mg/dL 0.2-1.2 SODIUM (BEAKER) (test cwmt=704) 135 meq/L 136-145 POTASSIUM (BEAKER) (test brnw=684) 4.4 meq/L 3.5-5.1 CHLORIDE (BEAKER) (test quyh=638) 92 meq/L 98-107 CO2 (BEAKER) (test ddqs=665) 30 meq/L 22-29 BLOOD UREA NITROGEN (BEAKER) (test dbsa=120) 30 mg/dL 7-21 CREATININE (BEAKER) (test opyl=949) 4.74 mg/dL 0.57-1.25 GLUCOSE RANDOM (BEAKER) (test jauu=717) 90 mg/dL 70-105 CALCIUM (BEAKER) (test exvt=078) 8.7 mg/dL 8.4-10.2 AST (SGOT) (BEAKER) (test nmqv=177) 15 U/L 5-34 ALT (SGPT) (BEAKER) (test typs=875) 12 U/L 6-55 EGFR (BEAKER) (test jxct=2616) 9 mL/min/1.73 sq m ESTIMATED GFR IS NOT ACCURATE CREATININE CLEARANCE IN PREDICTING GLOMERULAR FILTRATION RATE. ESTIMATED GFR IS NOT APPLICABLE FOR DIALYSIS PATIENTS. HEPATITIS B SURFACE [id number] 09:30:00* Test Item Value Reference Range Comments HEPATITIS B SURFACE ANTIGEN (2) (BEAKER) (test mdnr=6246) Nonreactive Nonreactive HEPATITIS B SURFACE [id number] 09:30:00* Test Item Value Reference Range Comments HEPATITIS B SURFACE ANTIBODY (BEAKER) (test wcod=751) 426.9 mIU/mL <8.0 HEPATITIS B CORE ANTIBODY, [id number] 09:30:00* Test Item Value Reference Range Comments HEPATITIS B CORE IGM ANTIBODY (BEAKER) (test extk=890) Nonreactive Nonreactive HEPATITIS C [id number] 09:30:00* Test Item Value Reference Range Comments HEPATITIS C ANTIBODY (BEAKER) (test htop=697) Nonreactive Nonreactive HIV-1 ANTIGEN WITH HIV-1/2 [id number] 09:30:00* Test Item Value Reference Range Comments HIV-1 ANTIGEN WITH HIV 1\T\2 ANTIBODY (2) (BEAKER) (test qvah=5684) Nonreactive Nonreactive PTH, [id number] 09:18:00* Test Item Value Reference Range Comments PARATHYROID HORMONE INTACT (BEAKER) (test jmhf=018) 447.4 pg/mL 8.5-72.5 URIC [id number] 09:12:00* Test Item Value Reference Range Comments URIC ACID (BEAKER) (test mopn=091) 3.9 mg/dL 2.6-7.2 [id number] 09:12:00* Test Item Value Reference Range Comments PHOSPHORUS (BEAKER) (test cetz=062) 4.1 mg/dL 2.3-4.7 LIPID [id number] 09:12:00* Test Item Value Reference Range Comments TRIGLYCERIDES (BEAKER) (test sivg=994) 153 mg/dL CHOLESTEROL (BEAKER) (test eemk=027) 243 mg/dL HDL CHOLESTEROL (BEAKER) (test ykrj=183) 56 mg/dL LDL CHOLESTEROL CALCULATED (BEAKER) (test pycg=876) 156 mg/dL Triglyceride Reference Range: Low Risk <150 Borderline 150-199 High Risk 200-499 Very High Risk >=500Cholesterol Reference Range: Low Risk <200 Borderline 200-239 High Risk >240HDL Cholesterol Reference Range: Low Risk >=60 High Risk <40LDL Cholesterol Reference Range: Optimal <100 Near Optimal 100-129 Borderline 130-159 High 160-189 Very High >=190 GAMMA GLUTAMYL TRANSFERASE (GGT)2017-09-07 09:12:00* Test Item Value Reference Range Comments GAMMA GLUTAMYL TRANSFERASE (BEAKER) (test eyrb=181) 24 U/L 9-64 LACTATE DEHYDROGENASE (LDH)2017-09-07 09:12:00* Test Item Value Reference Range Comments LACTATE DEHYDROGENASE (BEAKER) (test extp=486) 193 U/L 125-220 [id number] 08:58:00* Test Item Value Reference Range Comments PROTIME (BEAKER) (test zwmj=351) 14.8 seconds 11.7-14.7 INR (BEAKER) (test xaea=715) 1.2 <=5.9 PARTIAL THROMBOPLASTIN TIME (BEAKER) (test visw=056) 32.9 seconds 22.5-36.0 RECOMMENDED COUMADIN/WARFARIN INR THERAPY RANGESSTANDARD DOSE: 2.0 - 3.0 Includes: PROPHYLAXIS for venous thrombosis, systemic embolization; TREATMENT for venous thrombosis and/or pulmonary embolus.HIGH RISK: Target INR is 2.5-3.5 for patients with mechanical heart valves.CBC W/PLT COUNT & AUTO [id number] 08:48:00* Test Item Value Reference Range Comments WHITE BLOOD CELL COUNT (BEAKER) (test tlcc=896) 6.4 K/ L 3.5-10.5 RED BLOOD CELL COUNT (BEAKER) (test jwec=111) 3.54 M/ L 3.93-5.22 HEMOGLOBIN (BEAKER) (test dakk=272) 10.8 GM/DL 11.2-15.7 HEMATOCRIT (BEAKER) (test myfa=254) 34.1 % 34.1-44.9 MEAN CORPUSCULAR VOLUME (BEAKER) (test jkji=057) 96.3 fL 79.4-94.8 MEAN CORPUSCULAR HEMOGLOBIN (BEAKER) (test mkwf=893) 30.5 pg 25.6-32.2 MEAN CORPUSCULAR HEMOGLOBIN CONC (BEAKER) (test feou=867) 31.7 GM/DL 32.2- 35.5 RED CELL DISTRIBUTION WIDTH (BEAKER) (test zqzw=529) 13.5 % 11.7-14.4 PLATELET COUNT (BEAKER) (test zlgh=618) 268 K/CU MM 150-450 MEAN PLATELET VOLUME (BEAKER) (test fjhn=909) 10.1 fL 9.4-12.3 NUCLEATED RED BLOOD CELLS (BEAKER) (test pktt=457) 0 /100 WBC 0-0 NEUTROPHILS RELATIVE PERCENT (BEAKER) (test cyra=901) 68 % LYMPHOCYTES RELATIVE PERCENT (BEAKER) (test wdeg=196) 15 % MONOCYTES RELATIVE PERCENT (BEAKER) (test oehq=267) 11 % EOSINOPHILS RELATIVE PERCENT (BEAKER) (test pvlk=124) 4 % BASOPHILS RELATIVE PERCENT (BEAKER) (test srua=451) 1 % NEUTROPHILS ABSOLUTE COUNT (BEAKER) (test rvzw=632) 4.32 K/ L 1.56-6.13 LYMPHOCYTES ABSOLUTE COUNT (BEAKER) (test cqvf=183) 0.97 K/ L 1.18-3.74 MONOCYTES ABSOLUTE COUNT (BEAKER) (test cunv=816) 0.71 K/ L 0.24-0.36 EOSINOPHILS ABSOLUTE COUNT (BEAKER) (test hbfm=732) 0.28 K/ L 0.04-0.36 BASOPHILS ABSOLUTE COUNT (BEAKER) (test vxaw=618) 0.05 K/ L 0.01-0.08 IMMATURE GRANULOCYTES-RELATIVE PERCENT (BEAKER) (test badt=2591) 0 % 0-1
== END | disposition home or self-care (01) ==
LOC: OR 07:22
PROVIDERS: ATTEND Internal Medicine Gastroenterology
DX: Z12.11 Encounter for screening for malignant neoplasm of colon (principal); D12.0 Benign neoplasm of cecum; D12.2 Benign neoplasm of ascending colon; D12.3 Benign neoplasm of transverse colon; K63.89 Other specified diseases of intestine; K64.8 Other hemorrhoids; I25.10 Atherosclerotic heart disease of native coronary artery without angina pectoris; I25.2 Old myocardial infarction; E11.22 Type 2 diabetes mellitus with diabetic chronic kidney disease; I12.0 Hypertensive chronic kidney disease with stage 5 chronic kidney disease or end stage renal disease; N18.6 End stage renal disease; I83.90 Asymptomatic varicose veins of unspecified lower extremity; Z01.810 Encounter for preprocedural cardiovascular examination; Z79.02 Long term (current) use of antithrombotics/antiplatelets; Z79.01 Long term (current) use of anticoagulants; Z79.82 Long term (current) use of aspirin; Z99.2 Dependence on renal dialysis; Z95.5 Presence of coronary angioplasty implant and graft
CPT/HCPCS: 36415; 45380; 45384; 82948; 84132; 93005; J2001; J7040